=== PATIENT | male | born 1970 ===

== ENCOUNTER 2024-04-06 10:55 | Emergency (ER) | payer OTHER ==
[2024-04-06] MEDS: Ketorolac 30 MG/ML SDV IM ONE (12:15)
== END 2024-04-06 14:45 | disposition home or self-care (01) ==
LOC: LL.ED 10:55
DX: S59.902A Unspecified injury of left elbow, initial encounter (principal); S89.91XA Unspecified injury of right lower leg, initial encounter; M25.422 Effusion, left elbow; W17.89XA Other fall from one level to another, initial encounter
CPT/HCPCS: 72125; 73080-LT; 73560-RT; 96372; 99283; 99284; J1885